=== PATIENT | female | born 1980 | race Caucasian/White ===

== ENCOUNTER 2017-07-19 14:44 | Outpatient (CLI) | payer OTHER ==
[2017-07-19] MEDS: TERBUTALINE 1 MG/ML INJ SC (15:55)
[2017-07-19] MEDS: LACTATED RINGER'S 1,000 ML IV (15:56)
[2017-07-19 16:17] LABS: ADD UMIC YES; UR ASCORBIC ACID NEGATIVE (NEGATIVE); UR BACTERIA FEW /HPF (NONE SEEN); UR BILIRUBIN (Dip) NEGATIVE (NEGATIVE); UR BLOOD (Dip) 1+ mg/dL (NEGATIVE); UR CLARITY SLIGHTLY CLOUDY (CLEAR); UR COLOR YELLOW (YELLOW); UR GLUCOSE (Dip) 3+ mg/dL (NEGATIVE); UR KETONES (Dip) TRACE mg/dL (NEGATIVE); UR LEUKOCYTE ESTERASE (Dip) 3+ Leu/ul (NEGATIVE); UR NITRITE (Dip) NEGATIVE (NEGATIVE); UR RBC 1 /HPF (0-5); UR SPECIFIC GRAVITY (Dip) 1.014 (1.003-1.030); UR SQUAMOUS EPITHELIAL CELL MODERATE /HPF (FEW); UR TOTAL PROTEIN (Dip) NEGATIVE (NEGATIVE); UR UROBILINOGEN (Dip) NEGATIVE (NEGATIVE); UR WBC 8 /HPF (0-5)
[2017-07-19 17:08] LABS: ADD MAN DIFF? NO
[2017-07-19 17:10] LABS: BASOPHILS % 0.1 % (0.0-2.0); EOSINOPHILS # 0.1 10^3/ul (0.0-0.5); EOSINOPHILS % 1.4 % (0.0-7.0); HEMATOCRIT 32.8 % (37.0-47.0); LYMPHOCYTES # 2.1 10^3/ul (0.8-2.9); LYMPHOCYTES % 28.4 % (15.0-51.0); MEAN CORPUSCULAR HEMOGLOBIN 29.6 pg (29.0-33.0); MEAN CORPUSCULAR HGB CONC 33.5 g/dl (32.0-37.0); MEAN CORPUSCULAR VOLUME 88.2 fl (82.0-101.0); MEAN PLATELET VOLUME 10.9 fl (7.4-10.4); MONOCYTE # 0.4 10^3/ul (0.3-0.9); MONOCYTES % 4.8 % (0.0-11.0); NEUTROPHIL # 4.8 10^3/ul (1.6-7.5); NEUTROPHILS % 64.9 % (39.0-77.0); PLATELET COUNT 210 10^3/UL (140-415); RED BLOOD COUNT 3.72 10^6/ul (4.20-5.40)
[2017-07-19 17:10] LABS: WHITE BLOOD COUNT 7.3 10^3/ul (4.8-10.8)
[2017-07-19 17:28] LABS: ALANINE AMINOTRANSFERASE 28 IU/L (13-69); ALBUMIN 3.4 g/dl (3.3-4.9); ALKALINE PHOSPHATASE 99 IU/L (42-121); ANION GAP 13 (8-16); ASPARTATE AMINO TRANSFERASE 18 IU/L (15-46); BILIRUBIN,INDIRECT 0.3 mg/dl (0-1.1); BILIRUBIN,TOTAL 0.3 mg/dl (0.2-1.3); BLOOD UREA NITROGEN 5 mg/dl (7-20); CALCIUM 8.7 mg/dl (8.4-10.2); CARBON DIOXIDE 22 mmol/L (21-31); CHLORIDE 107 mmol/L (97-110); CREATININE 0.56 mg/dl (0.44-1.00); GLUCOSE 97 mg/dl (70-220); POTASSIUM 3.5 mmol/L (3.5-5.1); SODIUM 138 mmol/L (135-144); TOTAL PROTEIN 6.8 g/dl (6.1-8.1); URIC ACID 3.3 mg/dl (3.1-7.9)
[2017-07-19] MEDS: ACETAMINOPHEN 325 MG TAB PO (18:11)
== END 2017-07-19 18:53 | disposition home or self-care (01) ==
LOC: OBT 14:44 → L-D 14:44 → OBT 18:53
DX: O62.9 Abnormality of forces of labor, unspecified (principal); O24.419 Gestational diabetes mellitus in pregnancy, unspecified control; O26.893 Other specified pregnancy related conditions, third trimester; H53.8 Other visual disturbances; Z3A.34 34 weeks gestation of pregnancy
CPT/HCPCS: 36415; 76818; 80053; 81001; 82962; 84560; 85025; 96360; 96372

== ENCOUNTER 2017-08-18 07:07 | Inpatient (IN) | payer OTHER ==
[2017-08-18] MEDS ORDERED: MISOPROSTOL 200 MCG TAB PR (08:30)
[2017-08-18] MEDS ORDERED: METHYLERGONOVINE 0.2 MG INJ IM (08:30)
[2017-08-18] MEDS ORDERED: CARBOPROST 250 MCG INJ IM (08:30)
[2017-08-18] MEDS ORDERED: OXYTOCIN 30 UNITS/LR 500 ML IV ×3 (08:30→10:30)
[2017-08-18 08:33] LABS: ADD UMIC YES; UR ASCORBIC ACID NEGATIVE (NEGATIVE); UR BACTERIA FEW /HPF (NONE SEEN); UR BILIRUBIN (Dip) NEGATIVE (NEGATIVE); UR BLOOD (Dip) NEGATIVE (NEGATIVE); UR CLARITY CLEAR (CLEAR); UR COLOR YELLOW (YELLOW); UR GLUCOSE (Dip) NEGATIVE (NEGATIVE); UR KETONES (Dip) TRACE mg/dL (NEGATIVE); UR LEUKOCYTE ESTERASE (Dip) 3+ Leu/ul (NEGATIVE); UR NITRITE (Dip) NEGATIVE (NEGATIVE); UR RBC 2 /HPF (0-5); UR SPECIFIC GRAVITY (Dip) 1.013 (1.003-1.030); UR SQUAMOUS EPITHELIAL CELL FEW /HPF (FEW); UR TOTAL PROTEIN (Dip) NEGATIVE (NEGATIVE); UR UROBILINOGEN (Dip) NEGATIVE (NEGATIVE); UR WBC 5 /HPF (0-5)
[2017-08-18 08:38] LABS: INR 0.91; PARTIAL THROMBOPLASTIN TIME 24.4 Sec (25.0-35.0); PROTIME 12.3 Sec (11.9-14.9)
[2017-08-18] MEDS ORDERED: morphine SULFATE/PF (10 MG/10 ML) INJ (08:44)
[2017-08-18] MEDS ORDERED: OXYTOCIN 10 UNIT INJ (08:45)
[2017-08-18 09:04] LABS: ADD MAN DIFF? NO
[2017-08-18] MEDS: LACTATED RINGER'S 1,000 ML IV ×4 (09:04→23:57)
[2017-08-18 09:08] LABS: WHITE BLOOD COUNT 7.8 10^3/ul (4.8-10.8)
[2017-08-18 09:08] LABS: BASOPHILS % 0.1 % (0.0-2.0); EOSINOPHILS # 0.2 10^3/ul (0.0-0.5); EOSINOPHILS % 2.3 % (0.0-7.0); HEMATOCRIT 34.2 % (37.0-47.0); HEMOGLOBIN 11.4 g/dl (12.0-16.0); MEAN CORPUSCULAR HEMOGLOBIN 29.5 pg (29.0-33.0); MEAN CORPUSCULAR HGB CONC 33.3 g/dl (32.0-37.0); MEAN CORPUSCULAR VOLUME 88.4 fl (82.0-101.0); MEAN PLATELET VOLUME 10.9 fl (7.4-10.4); MONOCYTE # 0.4 10^3/ul (0.3-0.9); MONOCYTES % 5.2 % (0.0-11.0); NEUTROPHIL # 5.3 10^3/ul (1.6-7.5); NEUTROPHILS % 67.1 % (39.0-77.0); PLATELET COUNT 200 10^3/UL (140-415); RED BLOOD COUNT 3.87 10^6/ul (4.20-5.40); RED CELL DISTRIBUTION WIDTH 15.7 % (11.5-14.5)
[2017-08-18] MEDS: METOCLOPRAMIDE 10 MG INJ IV (09:11)
[2017-08-18] MEDS: FAMOTIDINE 20 MG INJ IV (09:11)
[2017-08-18] MEDS: ONDANSETRON 4 MG INJ IV (09:11)
[2017-08-18 09:13] LABS: HEPATITIS B SURFACE ANTIGEN NEGATIVE (NEGATIVE)
[2017-08-18] MEDS ORDERED: METHYLERGONOVINE 0.2 MG TAB PO (10:30)
[2017-08-18] MEDS ORDERED: LANOLIN 7 GM TUBE TOP (10:30)
[2017-08-18] MEDS ORDERED: NA PHOSPHATE/BIPHOS 133 ML ENEMA PR (10:30)
[2017-08-18] MEDS: CEFAZOLIN 2 GM/50 ML (PMX) 50 ML IV (11:15)
[2017-08-18] MEDS ORDERED: FENTAnyl 50 MCG/ML VIAL (11:41)
[2017-08-18] MEDS: KETOROLAC 30 MG INJ IV ×3 (12:25→22:30)
[2017-08-18] MEDS ORDERED: NALOXONE (0.4 MG/ML) INJ IV (12:30)
[2017-08-18] MEDS ORDERED: HYDROmorphONE 0.5 MG/0.5 ML SYG IV (12:30)
[2017-08-18] MEDS ORDERED: NALBUPHINE HCL (10 MG/1 ML) INJ IV (12:30)
[2017-08-18] MEDS ORDERED: HYDROmorphONE (0.2 MG/ML) 10ML SYG IV ×2 (12:30)
[2017-08-18] MEDS ORDERED: ZOLPIDEM 5 MG TAB PO (12:30)
[2017-08-18] MEDS ORDERED: TRIMETHOBENZAMIDE 100 MG/ML VIAL IM (12:30)
[2017-08-18] MEDS ORDERED: DIPHENHYDRAMINE 50 MG INJ IV (12:30)
[2017-08-18] MEDS ORDERED: METOCLOPRAMIDE 10 MG INJ IV (12:30)
[2017-08-18] MEDS ORDERED: KETOROLAC 30 MG INJ IV (12:30)
[2017-08-18] MEDS ORDERED: MEPERIDINE 25 MG INJ IV (12:30)
[2017-08-18] MEDS ORDERED: ONDANSETRON 4 MG INJ IV ×2 (12:30)
[2017-08-18] MEDS: OXYTOCIN 30 UNITS/LR 500 ML IV ×3 (13:07→18:24)
[2017-08-18] MEDS: ACCU-CHEK XX ×2 (14:00→20:10)
[2017-08-18] MEDS ORDERED: CEFAZOLIN 2 GM/50 ML (PMX) 50 ML IVPB (14:00)
[2017-08-18] MEDS ORDERED: IBUPROFEN 800 MG TAB PO (14:00)
[2017-08-18] MEDS: METHYLERGONOVINE 0.2 MG INJ IM (14:33)
[2017-08-18] MEDS: MISOPROSTOL 200 MCG TAB PR (14:49)
[2017-08-18] MEDS: HYDROmorphONE (0.2 MG/ML) 10ML SYG IV (15:12)
[2017-08-18] MEDS: CARBOPROST 250 MCG INJ IM (16:15)
[2017-08-18 17:03] LABS: ADD MAN DIFF? NO
[2017-08-18 17:05] LABS: WHITE BLOOD COUNT 10.1 10^3/ul (4.8-10.8)
[2017-08-18 17:05] LABS: BASOPHILS % 0.1 % (0.0-2.0); EOSINOPHILS % 0.2 % (0.0-7.0); HEMATOCRIT 31.8 % (37.0-47.0); HEMOGLOBIN 10.6 g/dl (12.0-16.0); LYMPHOCYTES # 1.8 10^3/ul (0.8-2.9); LYMPHOCYTES % 17.4 % (15.0-51.0); MEAN CORPUSCULAR HEMOGLOBIN 29.8 pg (29.0-33.0); MEAN CORPUSCULAR HGB CONC 33.3 g/dl (32.0-37.0); MEAN CORPUSCULAR VOLUME 89.3 fl (82.0-101.0); MEAN PLATELET VOLUME 10.8 fl (7.4-10.4); MONOCYTE # 0.5 10^3/ul (0.3-0.9); NEUTROPHIL # 7.8 10^3/ul (1.6-7.5); PLATELET COUNT 185 10^3/UL (140-415); RED BLOOD COUNT 3.56 10^6/ul (4.20-5.40); RED CELL DISTRIBUTION WIDTH 15.7 % (11.5-14.5)
[2017-08-18] MEDS: CEFAZOLIN 2 GM/50 ML (PMX) 50 ML IVPB (20:10)
[2017-08-18] MEDS: SENNA/DOCUSATE NA (8.6MG/50MG) TAB PO (20:11)
[2017-08-18 21:17] LABS: RAPID PLASMA REAGIN NONREACTIVE (NR)
[2017-08-19] MEDS: CEFAZOLIN 2 GM/50 ML (PMX) 50 ML IVPB ×2 (03:51→12:09)
[2017-08-19] MEDS: KETOROLAC 30 MG INJ IV ×2 (03:58→10:30)
[2017-08-19] MEDS: ACCU-CHEK XX ×4 (07:30→22:15)
[2017-08-19] MEDS: HYDROmorphONE 0.5 MG/0.5 ML SYG IV (07:52)
[2017-08-19 08:23] LABS: ADD MAN DIFF? NO
[2017-08-19 08:26] LABS: BASOPHILS % 0.1 % (0.0-2.0); EOSINOPHILS # 0.2 10^3/ul (0.0-0.5); EOSINOPHILS % 2.2 % (0.0-7.0); HEMOGLOBIN 9.1 g/dl (12.0-16.0); LYMPHOCYTES # 1.4 10^3/ul (0.8-2.9); LYMPHOCYTES % 18.2 % (15.0-51.0); MEAN CORPUSCULAR HEMOGLOBIN 29.7 pg (29.0-33.0); MEAN CORPUSCULAR HGB CONC 33.7 g/dl (32.0-37.0); MEAN CORPUSCULAR VOLUME 88.2 fl (82.0-101.0); MEAN PLATELET VOLUME 10.8 fl (7.4-10.4); MONOCYTE # 0.5 10^3/ul (0.3-0.9); MONOCYTES % 6.5 % (0.0-11.0); NEUTROPHIL # 5.5 10^3/ul (1.6-7.5); NEUTROPHILS % 72.7 % (39.0-77.0); PLATELET COUNT 175 10^3/UL (140-415); RED BLOOD COUNT 3.06 10^6/ul (4.20-5.40); RED CELL DISTRIBUTION WIDTH 15.8 % (11.5-14.5)
[2017-08-19 08:26] LABS: WHITE BLOOD COUNT 7.6 10^3/ul (4.8-10.8)
[2017-08-19] MEDS: SENNA/DOCUSATE NA (8.6MG/50MG) TAB PO ×2 (08:42→21:00)
[2017-08-19] MEDS: LACTATED RINGER'S 1,000 ML IV (09:44)
[2017-08-19] MEDS: BISACODYL (EC) 5 MG TAB PO (12:10)
[2017-08-19] MEDS: IBUPROFEN 800 MG TAB PO ×2 (12:17→22:41)
[2017-08-19] MEDS: HYDROCODONE/APAP (5/325) TAB PO ×2 (13:47→20:07)
[2017-08-19] MEDS: SOD FERRIC GLUC COMPLX 125 MG in SOD CHLORIDE 0.9% 100 ML IVPB (13:48)
[2017-08-20] MEDS: IBUPROFEN 800 MG TAB PO ×3 (06:01→22:46)
[2017-08-20] MEDS: ACCU-CHEK XX ×4 (08:19→20:05)
[2017-08-20] MEDS: SENNA/DOCUSATE NA (8.6MG/50MG) TAB PO ×2 (08:38→21:15)
[2017-08-20] MEDS: HYDROCODONE/APAP (5/325) TAB PO ×2 (10:32→19:16)
[2017-08-20] MEDS: MEASLES,MUMPS,RUBELLA VACCINE INJ SC* (10:34)
[2017-08-21] MEDS: SENNA/DOCUSATE NA (8.6MG/50MG) TAB PO ×2 (06:36→21:00)
[2017-08-21] MEDS: IBUPROFEN 800 MG TAB PO ×3 (06:37→22:19)
[2017-08-21] MEDS: ACCU-CHEK XX ×4 (08:25→22:25)
[2017-08-21] MEDS: HYDROCODONE/APAP (5/325) TAB PO ×3 (08:40→19:41)
[2017-08-21] MEDS: DIPHTH/TET/ACEL PERTUSS (ADULT) 0.5 ML VIAL IM* (09:00)
[2017-08-21 12:25] LABS: ADD MAN DIFF? NO
[2017-08-21 12:29] LABS: WHITE BLOOD COUNT 7.1 10^3/ul (4.8-10.8)
[2017-08-21 12:29] LABS: BASOPHILS % 0.3 % (0.0-2.0); EOSINOPHILS # 0.3 10^3/ul (0.0-0.5); EOSINOPHILS % 3.9 % (0.0-7.0); HEMATOCRIT 26.9 % (37.0-47.0); HEMOGLOBIN 9.2 g/dl (12.0-16.0); LYMPHOCYTES # 1.5 10^3/ul (0.8-2.9); LYMPHOCYTES % 21.4 % (15.0-51.0); MEAN CORPUSCULAR HEMOGLOBIN 30.6 pg (29.0-33.0); MEAN CORPUSCULAR HGB CONC 34.2 g/dl (32.0-37.0); MEAN CORPUSCULAR VOLUME 89.4 fl (82.0-101.0); MEAN PLATELET VOLUME 10.9 fl (7.4-10.4); MONOCYTE # 0.4 10^3/ul (0.3-0.9); MONOCYTES % 4.9 % (0.0-11.0); NEUTROPHIL # 4.9 10^3/ul (1.6-7.5); NEUTROPHILS % 68.8 % (39.0-77.0); PLATELET COUNT 205 10^3/UL (140-415); RED BLOOD COUNT 3.01 10^6/ul (4.20-5.40); RED CELL DISTRIBUTION WIDTH 15.9 % (11.5-14.5)
[2017-08-21] MEDS ORDERED: DEXTROSE 50% 50 ML SYRINGE IV ×2 (12:30)
[2017-08-21] MEDS ORDERED: GLUCOSE GEL 15 GRAM TUBE BUCCAL (12:30)
[2017-08-21] MEDS ORDERED: GLUCOSE GEL 15 GRAM TUBE PO ×2 (12:30)
[2017-08-21] MEDS ORDERED: GLUCAGON 1 MG INJ IM (12:30)
[2017-08-21 12:50] LABS: ALANINE AMINOTRANSFERASE 27 IU/L (13-69); ALBUMIN 2.9 g/dl (3.3-4.9); ALBUMIN/GLOBULIN RATIO 0.93; ALKALINE PHOSPHATASE 79 IU/L (42-121); ANION GAP 14 (8-16); ASPARTATE AMINO TRANSFERASE 25 IU/L (15-46); BILIRUBIN,INDIRECT 0.2 mg/dl (0-1.1); BILIRUBIN,TOTAL 0.2 mg/dl (0.2-1.3); BLOOD UREA NITROGEN 5 mg/dl (7-20); CALCIUM 9.1 mg/dl (8.4-10.2); CARBON DIOXIDE 29 mmol/L (21-31); CHLORIDE 101 mmol/L (97-110); GLUCOSE 113 mg/dl (70-220); POTASSIUM 3.8 mmol/L (3.5-5.1); SODIUM 140 mmol/L (135-144); URIC ACID 4.2 mg/dl (3.1-7.9)
[2017-08-21 12:51] LABS: INR 0.89; PROTIME 12.1 Sec (11.9-14.9); PT RATIO 0.9
[2017-08-21 12:52] LABS: PARTIAL THROMBOPLASTIN TIME 31.7 Sec (25.0-35.0)
[2017-08-21 13:04] LABS: FIBRIN SPLIT PRODUCT <10 ug/ml (<10)
[2017-08-21 13:58] LABS: ADD UMIC YES; UR ASCORBIC ACID NEGATIVE (NEGATIVE); UR BACTERIA FEW /HPF (NONE SEEN); UR BILIRUBIN (Dip) NEGATIVE (NEGATIVE); UR BLOOD (Dip) 3+ mg/dL (NEGATIVE); UR CLARITY SLIGHTLY CLOUDY (CLEAR); UR COLOR STRAW (YELLOW); UR GLUCOSE (Dip) NEGATIVE (NEGATIVE); UR KETONES (Dip) NEGATIVE (NEGATIVE); UR LEUKOCYTE ESTERASE (Dip) TRACE Leu/ul (NEGATIVE); UR NITRITE (Dip) NEGATIVE (NEGATIVE); UR RBC 33 /HPF (0-5); UR SPECIFIC GRAVITY (Dip) 1.004 (1.003-1.030); UR SQUAMOUS EPITHELIAL CELL FEW /HPF (FEW); UR TOTAL PROTEIN (Dip) NEGATIVE (NEGATIVE); UR UROBILINOGEN (Dip) NEGATIVE (NEGATIVE); UR WBC 12 /HPF (0-5)
[2017-08-21] MEDS: CAFFEINE 200 MG TABLET PO ×2 (14:16→19:34)
[2017-08-21] MEDS: metFORMIN (XR) 500 MG TAB PO (18:21)
[2017-08-22] MEDS: HYDROCODONE/APAP (5/325) TAB PO ×2 (04:15→12:06)
[2017-08-22] MEDS: IBUPROFEN 800 MG TAB PO ×3 (05:49→22:00)
[2017-08-22] MEDS: CAFFEINE 200 MG TABLET PO ×4 (05:49→18:39)
[2017-08-22] MEDS: ACCU-CHEK XX ×4 (07:30→21:50)
[2017-08-22] MEDS: metFORMIN (XR) 500 MG TAB PO ×2 (08:23→18:39)
[2017-08-22] MEDS: SENNA/DOCUSATE NA (8.6MG/50MG) TAB PO ×2 (08:23→21:00)
[2017-08-22] MEDS: LABETALOL 100 MG TAB PO ×2 (12:07→21:00)
[2017-08-22] MEDS: ONDANSETRON 4 MG TAB PO (18:37)
[2017-08-22] MEDS: DIPHTH/TET/ACEL PERTUSS (ADULT) 0.5 ML VIAL IM* (20:30)
[2017-08-22] MEDS: LABETALOL 200 MG TAB PO (21:00)
[2017-08-23] MEDS: CAFFEINE 200 MG TABLET PO ×2 (00:02→05:45)
[2017-08-23] MEDS: HYDROCODONE/APAP (5/325) TAB PO (03:14)
[2017-08-23] MEDS: IBUPROFEN 800 MG TAB PO (05:45)
[2017-08-23] MEDS: LABETALOL 200 MG TAB PO ×2 (09:00→21:00)
[2017-08-23] MEDS: SENNA/DOCUSATE NA (8.6MG/50MG) TAB PO ×2 (09:00→21:03)
[2017-08-23] MEDS: ONDANSETRON 4 MG TAB PO (09:48)
[2017-08-23] MEDS: AL HYDROX/MG HYDROX/SIMETH 30 ML CUP PO (10:30)
[2017-08-23] MEDS: LABETALOL 100 MG TAB PO ×2 (12:23→21:03)
[2017-08-23] MEDS: PANTOPRAZOLE (EC) 40 MG TAB PO (14:11)
[2017-08-23] MEDS: traMADol 50 MG TAB PO ×2 (14:11→21:00)
[2017-08-23] MEDS: metFORMIN (XR) 500 MG TAB PO ×2 (14:12→20:28)
[2017-08-23] MEDS: ACCU-CHEK XX (21:50)
[2017-08-24] MEDS ORDERED: HYDROCODONE/APAP (5/325) TAB PO (06:00)
[2017-08-24] MEDS: HYDROCODONE/APAP (5/325) TAB PO (07:04)
[2017-08-24 07:34] LABS: ADD MAN DIFF? NO
[2017-08-24 07:40] LABS: BASOPHILS % 0.1 % (0.0-2.0); EOSINOPHILS # 0.3 10^3/ul (0.0-0.5); EOSINOPHILS % 4.2 % (0.0-7.0); HEMATOCRIT 30.4 % (37.0-47.0); HEMOGLOBIN 10.1 g/dl (12.0-16.0); LYMPHOCYTES # 1.9 10^3/ul (0.8-2.9); LYMPHOCYTES % 26.7 % (15.0-51.0); MEAN CORPUSCULAR HEMOGLOBIN 29.9 pg (29.0-33.0); MEAN CORPUSCULAR HGB CONC 33.2 g/dl (32.0-37.0); MEAN CORPUSCULAR VOLUME 89.9 fl (82.0-101.0); MEAN PLATELET VOLUME 10.4 fl (7.4-10.4); MONOCYTE # 0.5 10^3/ul (0.3-0.9); MONOCYTES % 6.5 % (0.0-11.0); NEUTROPHIL # 4.5 10^3/ul (1.6-7.5); NEUTROPHILS % 62.1 % (39.0-77.0); PLATELET COUNT 259 10^3/UL (140-415); RED BLOOD COUNT 3.38 10^6/ul (4.20-5.40); RED CELL DISTRIBUTION WIDTH 15.7 % (11.5-14.5)
[2017-08-24 07:40] LABS: WHITE BLOOD COUNT 7.2 10^3/ul (4.8-10.8)
[2017-08-24 07:56] LABS: INR 0.92; PROTIME 12.4 Sec (11.9-14.9)
[2017-08-24 07:57] LABS: PARTIAL THROMBOPLASTIN TIME 25.8 Sec (25.0-35.0)
[2017-08-24] MEDS: ACCU-CHEK XX (08:04)
[2017-08-24 08:10] LABS: ALANINE AMINOTRANSFERASE 32 IU/L (13-69); ALBUMIN 3.3 g/dl (3.3-4.9); ALKALINE PHOSPHATASE 91 IU/L (42-121); ANION GAP 16 (8-16); ASPARTATE AMINO TRANSFERASE 22 IU/L (15-46); BILIRUBIN,INDIRECT 0.4 mg/dl (0-1.1); BILIRUBIN,TOTAL 0.4 mg/dl (0.2-1.3); BLOOD UREA NITROGEN 6 mg/dl (7-20); CALCIUM 8.8 mg/dl (8.4-10.2); CARBON DIOXIDE 29 mmol/L (21-31); CHLORIDE 103 mmol/L (97-110); CREATININE 0.69 mg/dl (0.44-1.00); GLUCOSE 104 mg/dl (70-220); POTASSIUM 4.1 mmol/L (3.5-5.1); SODIUM 144 mmol/L (135-144); TOTAL PROTEIN 6.6 g/dl (6.1-8.1); URIC ACID 5.9 mg/dl (3.1-7.9)
[2017-08-24] MEDS: SOD CHLORIDE 0.9% 100 ML (08:31)
[2017-08-24] MEDS: IODIXANOL LOCM 100 ML BTL (08:32)
[2017-08-24] MEDS ORDERED: [UNRECOGNIZED DRUG - REMARK] XX (09:00)
[2017-08-24] MEDS: LABETALOL 100 MG TAB PO (09:19)
[2017-08-24] MEDS: SENNA/DOCUSATE NA (8.6MG/50MG) TAB PO (09:19)
[2017-08-24] MEDS: traMADol 50 MG TAB PO (09:19)
[2017-08-24] MEDS ORDERED: LACTATED RINGER'S 500 ML IV (10:30)
[2017-08-24 11:17] LABS: FIBRIN SPLIT PRODUCT <10 ug/ml (<10)
== END 2017-08-24 15:26 | disposition home or self-care (01) | DRG 765 ==
LOC: L-D 07:07 → PP1 18:18
PROVIDERS: Obstetrics & Gynecology
PROC: 10D00Z1 Extraction of Products of Conception, Low, Open Approach (ICD-10-PCS; principal; 2017-08-18 09:00)
PROC: 3E033VJ Introduction of Other Hormone into Peripheral Vein, Percutaneous Approach (ICD-10-PCS; 2017-08-18 09:00)
DX: O34.211 Maternal care for low transverse scar from previous cesarean delivery (principal); Z68.41 Body mass index [BMI] 40.0-44.9, adult; O40.3XX0 Polyhydramnios, third trimester, not applicable or unspecified; O24.429 Gestational diabetes mellitus in childbirth, unspecified control; O99.214 Obesity complicating childbirth; O14.04 Mild to moderate pre-eclampsia, complicating childbirth; E66.01 Morbid (severe) obesity due to excess calories; O74.5 Spinal and epidural anesthesia-induced headache during labor and delivery; Z3A.38 38 weeks gestation of pregnancy; Z37.0 Single live birth
CPT/HCPCS: 70470; 80053; 81001; 82962; 84560; 85025; 85362; 85384; 85610; 85730; 86592; 86850; 86900; 86901; 86920; 87340; 94760; 99464

== ENCOUNTER 2019-02-20 12:30 | Inpatient (IN) | payer OTHER ==
[2019-02-20] MEDS ORDERED: hydrALAzine 20 MG INJ IV (14:30)
[2019-02-20] MEDS ORDERED: ALBUTEROL/IPRATROPIUM (NEB) 3 ML AMP HHN (14:30)
[2019-02-20] MEDS ORDERED: NACL 0.9% 3 ML SYG IV (14:30)
[2019-02-20] MEDS ORDERED: DOCUSATE SODIUM 100 MG CAP PO (14:30)
[2019-02-20] MEDS ORDERED: NITROGLYCERIN (SL) 0.4 MG TAB SL (14:30)
[2019-02-20] MEDS ORDERED: LORAZEPAM 2 MG INJ IV (14:30)
[2019-02-20] MEDS ORDERED: MAGNESIUM HYDROXIDE 30ML CUP PO (14:30)
[2019-02-20] MEDS ORDERED: ACETAMINOPHEN 325 MG TAB PO (14:30)
[2019-02-20] MEDS ORDERED: GLUCOSE GEL 15 GRAM TUBE PO ×2 (15:00)
[2019-02-20] MEDS ORDERED: GLUCAGON 1 MG INJ IM (15:00)
[2019-02-20] MEDS ORDERED: DEXTROSE 50% 50 ML SYRINGE IV ×2 (15:00)
[2019-02-20] MEDS ORDERED: GLUCOSE GEL 15 GRAM TUBE BUCCAL (15:00)
[2019-02-20] MEDS: DEXTROSE 5%-0.45% NACL 1,000 ML IV (15:01)
[2019-02-20] MEDS: CEFTRIAXONE 1 GM/50 ML (PMX) 50 ML IVPB (15:01)
[2019-02-20 15:18] LABS: INR 0.93; PROTIME 12.6 Sec (11.9-14.9)
[2019-02-20 15:19] LABS: PARTIAL THROMBOPLASTIN TIME 25.2 Sec (23.0-35.0)
[2019-02-20] MEDS: INSULIN ASPART [NOVOLOG] 3 ML PEN SC ×2 (17:00→20:35)
[2019-02-20] MEDS: morphine 2 MG INJ IV (20:22)
[2019-02-20] MEDS: HEPARIN 5,000 UNIT/1 ML VIAL SC (20:35)
[2019-02-21] MEDS: INSULIN ASPART [NOVOLOG] 3 ML PEN SC ×3 (00:46→08:02)
[2019-02-21] MEDS: HYDROCODONE/APAP (5/325) TAB PO ×2 (01:38→10:54)
[2019-02-21] MEDS: ACCU-CHEK XX (02:00)
[2019-02-21] MEDS: DEXTROSE 5%-0.45% NACL 1,000 ML IV (03:43)
[2019-02-21 05:19] LABS: ADD MAN DIFF? NO
[2019-02-21 05:22] LABS: BASOPHILS % 0.3 % (0.0-2.0); EOSINOPHILS # 0.2 10^3/ul (0.0-0.5); EOSINOPHILS % 3.7 % (0.0-7.0); HEMATOCRIT 35.9 % (37.0-47.0); HEMOGLOBIN 11.7 g/dl (12.0-16.0); LYMPHOCYTES # 2.9 10^3/ul (0.8-2.9); LYMPHOCYTES % 44.5 % (15.0-51.0); MEAN CORPUSCULAR HEMOGLOBIN 28.9 pg (29.0-33.0); MEAN CORPUSCULAR HGB CONC 32.6 g/dl (32.0-37.0); MEAN CORPUSCULAR VOLUME 88.6 fl (82.0-101.0); MEAN PLATELET VOLUME 11.2 fl (7.4-10.4); MONOCYTE # 0.3 10^3/ul (0.3-0.9); MONOCYTES % 4.8 % (0.0-11.0); NEUTROPHILS % 46.5 % (39.0-77.0); PLATELET COUNT 224 10^3/UL (140-415); RED BLOOD COUNT 4.05 10^6/ul (4.20-5.40); RED CELL DISTRIBUTION WIDTH 13.6 % (11.5-14.5)
[2019-02-21 05:22] LABS: WHITE BLOOD COUNT 6.5 10^3/ul (4.8-10.8)
[2019-02-21 05:40] LABS: HEMOGLOBIN A1C 6.2 % (0-5.9)
[2019-02-21 05:46] LABS: ALANINE AMINOTRANSFERASE 43 IU/L (13-69); ALBUMIN 3.3 g/dl (3.3-4.9); ALKALINE PHOSPHATASE 50 IU/L (42-121); ANION GAP 6 (5-13); ASPARTATE AMINO TRANSFERASE 37 IU/L (15-46); BILIRUBIN,INDIRECT 1.1 mg/dl (0-1.1); BILIRUBIN,TOTAL 1.1 mg/dl (0.2-1.3); BLOOD UREA NITROGEN 4 mg/dl (7-20); CALCIUM 8.6 mg/dl (8.4-10.2); CARBON DIOXIDE 29 mmol/L (21-31); CHLORIDE 101 mmol/L (97-110); CHOL/HDL RATIO 4.2 RATIO; CHOLESTEROL 132 mg/dl (100-200); CREATININE 0.63 mg/dl (0.44-1.00); Estimated GFR > 60 mL/min (>60); GLUCOSE 139 mg/dl (70-220); HDL CHOLESTEROL 31 mg/dl (34-82); LDL CHOLESTEROL,CALCULATED 64 mg/dl; LIPASE 87 U/L (23-300); MAGNESIUM 1.8 mg/dl (1.7-2.5); PHOSPHORUS 3.7 mg/dl (2.5-4.9); POTASSIUM 4.3 mmol/L (3.5-5.1); SODIUM 136 mmol/L (135-144); TOTAL PROTEIN 6.2 g/dl (6.1-8.1); TRIGLYCERIDES 185 mg/dl (0-149)
[2019-02-21] MEDS: ONDANSETRON 4 MG INJ IV (08:50)
[2019-02-21] MEDS: HEPARIN 5,000 UNIT/1 ML VIAL SC (09:00)
== END 2019-02-21 13:05 | disposition home or self-care (01) | DRG 446 ==
LOC: 2NE 12:30
PROVIDERS: Internal Medicine
DX: K80.20 Calculus of gallbladder without cholecystitis without obstruction (principal); E11.9 Type 2 diabetes mellitus without complications; K76.0 Fatty (change of) liver, not elsewhere classified; Z79.84 Long term (current) use of oral hypoglycemic drugs
CPT/HCPCS: 74181; 80048; 80061; 80076; 82962; 83036; 83690; 83735; 84100; 84439; 84443; 84703; 85025; 85610; 85730